=== PATIENT | female | born 1990 | race Two or more races ===

== ENCOUNTER → 2021-03-29 | Day surgery (SDC) | payer OTHER | END | disposition home or self-care (01) | LOC: EDBD → CIR.AMB 09:18 | PROVIDERS: ATTEND Obstetrics & Gynecology | DX: O02.1 Missed abortion (principal); Z20.822 Contact with and (suspected) exposure to COVID-19 ==

== ENCOUNTER 2022-02-12 16:33 | Emergency (ER) | payer OTHER ==
[~2022-02-12] VITALS: Ht 157.5 cm; Wt 72.6 kg
[2022-02-12] MEDS ORDERED: VAZALORE81 MG PO (17:00)
== END 2022-02-12 20:05 | disposition home or self-care (01) ==
LOC: ER 16:33
DX: O20.9 Hemorrhage in early pregnancy, unspecified (principal); Z3A.15 15 weeks gestation of pregnancy

== ENCOUNTER 2022-04-12 08:59 | Outpatient (CLI) | payer OTHER ==
[~2022-04-12 08:59] MED LIST: VAZALORE81 MG PO
== END 2022-04-12 09:55 | disposition home or self-care (01) ==
LOC: NST 08:59
PROVIDERS: ATTEND Obstetrics & Gynecology Maternal & Fetal Medicine
DX: Z34.82 Encounter for supervision of other normal pregnancy, second trimester (principal)

== ENCOUNTER 2022-06-11 09:32 | Outpatient (CLI) | payer OTHER | END 2022-06-11 11:01 | disposition home or self-care (01) | LOC: NST 09:32 | PROVIDERS: ATTEND Obstetrics & Gynecology Gynecology | DX: Z34.93 Encounter for supervision of normal pregnancy, unspecified, third trimester (principal) ==